=== PATIENT | male | born 1975 | race Caucasian/White ===

== ENCOUNTER → 2017-02-17 | Outpatient (CLI) | payer OTHER ==
[~2017-02-17] MED LIST: [UNRECOGNIZED DRUG - CODE] PO
== END | disposition home or self-care (01) ==
LOC: C.LABMFLN 12:33
PROVIDERS: ATTEND Family Medicine
DX: G56.02 Carpal tunnel syndrome, left upper limb (principal); M25.551 Pain in right hip

== ENCOUNTER → 2017-10-04 | Outpatient (CLI) | payer OTHER | END | disposition home or self-care (01) | LOC: C.PATHSPEC 17:12 | PROVIDERS: ATTEND Orthopaedic Surgery Sports Medicine | DX: M77.12 Lateral epicondylitis, left elbow (principal) ==